=== PATIENT | female | born 1945 | race Caucasian/White ===

== ENCOUNTER → 2017-07-13 | Outpatient (CLI) | payer MEDICARE, BC ==
[~2017-07-13] MED LIST: AMITRIPTYLINE H10 MG PO; APIDRA SOL100 UNIT/1 SQ; AUGMENTIN875 MG PO; CALCIUM500 M4 PO; DAILY VALUE1 EACH PO; EPLERENONE50 MG PO; FLAGYL500 MG PO; GLUCOPHAGE XR,500 MG PO; HUMALOG100 UNIT/2 SQ; LANSOPRAZOLE30 MG PO; MEDROL DOSEPAK4 MG PO; METOPROLOL SUCC25 MG PO; PERCOCET 5/31 TABLET PO; PREMARIN0.3 MG PO; QUINAPRIL HCL40 MG PO; SKELAXIN800 MG PO; THERA-D2000 UNIT PO
== END | disposition home or self-care (01) ==
LOC: CDC 14:16
DX: Z01.810 Encounter for preprocedural cardiovascular examination (principal); I51.7 Cardiomegaly; R94.31 Abnormal electrocardiogram [ECG] [EKG]
CPT/HCPCS: 93000